=== PATIENT | male | born 1955 | race Caucasian/White ===

== ENCOUNTER 2019-02-21 11:00 | Inpatient (IN) | payer OTHER ==
[2019-02-21] MEDS ORDERED: Morphine 2 MG/ML Syringe IVPUSH PRN ×3 (11:28→12:45)
[2019-02-21] MEDS ORDERED: Ondansetron 4 MG/2 ML SDV IV PRN (11:28)
[2019-02-21] MEDS ORDERED: Albuterol/Ipratropium 3.0-0.5 MG/3 ML Neb Soln NEB PRN (11:28)
[2019-02-21] MEDS ORDERED: Albuterol 8 GM Inhaler INH PRN ×2 (11:48→14:47)
[2019-02-21 12:32] LABS: ANION GAP 16.2 mmol/L (5-15); CHLORIDE,CL 100 mmol/L (98-115); SODIUM,NA 139 mmol/L (136-145)
[2019-02-21] MEDS: Sodium Chloride 0.9% 10 ML Syringe FLUSH PRN ×2 (12:55→21:18)
[2019-02-21] MEDS ORDERED: Albuterol/Ipratropium 3.0-0.5 MG/3 ML Neb Soln INH PRN (13:59)
[2019-02-21] MEDS: Acetaminophen/HYDROcodone 325-5 MG Tab PO PRN (14:11)
[2019-02-21] MEDS ORDERED: predniSONE 20 MG Tab PO SCH (14:15)
[2019-02-21] MEDS ORDERED: LORazepam 2 MG/ML SDV IVPUSH ONE (15:40)
[2019-02-21] MEDS: HYDROmorphone 2 MG/ML SDV IVPUSH SCH ×2 (15:44→22:00)
[2019-02-21] MEDS: Calcium Citrate/Vitamin D3 315 MG-250 Unit Tab PO SCH (16:01)
[2019-02-21] MEDS: Cholecalciferol (Vitamin D3) 25 MCG Tab PO SCH (16:02)
[2019-02-21] MEDS: Nicotine 14 MG/24 Hr Patch TRDERM SCH (16:07)
[2019-02-21] MEDS: Polyethylene Glycol 3350 Powder 17 GM Packet PO SCH ×2 (17:23→20:55)
[2019-02-21] MEDS: Lisinopril 10 MG Tab PO SCH (17:23)
[2019-02-21] MEDS ORDERED: LORazepam 2 MG/ML SDV IVPUSH PRN (18:36)
[2019-02-21] MEDS ORDERED: Naloxone 2 MG/2 ML Syringe IVPUSH PRN (18:44)
[2019-02-21] MEDS: atorvaSTATin 10 MG Tab PO SCH (20:56)
[2019-02-21] MEDS: Cyclobenzaprine 10 MG Tab PO SCH (20:56)
[2019-02-21] MEDS: Enoxaparin 40 MG/0.4 ML Syringe SUBCUT SCH (20:58)
[2019-02-21] MEDS: Glycopyrrolate 15.6 MCG Cap.W.Dev Kit of 6 IH SCH (21:00)
[2019-02-21] MEDS: Indacaterol/Glycopyrrolate 1 EA Cap.W.Dev Kit of 6 IH SCH (21:00)
[2019-02-21] MEDS: HYDROmorphone 2 MG/ML SDV IVPUSH PRN (21:11)
[2019-02-22] MEDS: HYDROmorphone 2 MG/ML SDV IVPUSH PRN ×4 (02:44→22:08)
[2019-02-22] MEDS: Sodium Chloride 0.9% 10 ML Syringe FLUSH PRN ×5 (02:52→22:15)
[2019-02-22] MEDS: Levothyroxine 50 MCG Tab PO SCH (07:35)
[2019-02-22] MEDS: Acetaminophen/HYDROcodone 325-5 MG Tab PO PRN (07:40)
[2019-02-22] MEDS: Polyethylene Glycol 3350 Powder 17 GM Packet PO SCH ×2 (08:54→20:15)
[2019-02-22] MEDS: Cholecalciferol (Vitamin D3) 25 MCG Tab PO SCH (08:55)
[2019-02-22] MEDS: Calcium Citrate/Vitamin D3 315 MG-250 Unit Tab PO SCH (08:55)
[2019-02-22] MEDS: Hydrochlorothiazide 25 MG Tab PO SCH (08:55)
[2019-02-22] MEDS: Lisinopril 10 MG Tab PO SCH (08:55)
[2019-02-22] MEDS: Aspirin 81 MG Tab.EC PO SCH (08:55)
[2019-02-22] MEDS: Cyclobenzaprine 10 MG Tab PO SCH ×2 (08:56→20:15)
[2019-02-22] MEDS: Enoxaparin 40 MG/0.4 ML Syringe SUBCUT SCH ×2 (09:00→20:16)
[2019-02-22] MEDS ORDERED: Bisacodyl 10 MG Supp RECTAL ONE (09:16)
[2019-02-22] MEDS ORDERED: LORazepam 0.5 MG Tab PO ONE (09:16)
[2019-02-22] MEDS: Glycopyrrolate 15.6 MCG Cap.W.Dev Kit of 6 IH SCH ×2 (09:29→20:11)
[2019-02-22] MEDS: Indacaterol/Glycopyrrolate 1 EA Cap.W.Dev Kit of 6 IH SCH ×2 (09:33→20:12)
[2019-02-22] MEDS: Acetaminophen/HYDROcodone 325-10 MG Tab PO PRN ×2 (10:40→16:52)
--- NOTE | 2019-02-22 11:01 | PCM.PN ---
- General Info Date of Service: 02/22/19 Functional Status: Reports: Pain Controlled, Tolerating Diet, Urinating. Denies : Ambulating - Review of Systems General: Denies: Weakness HEENT: Reports: No Symptoms Pulmonary: Reports: Shortness of Breath Cardiovascular: Reports: No Symptoms Gastrointestinal: Reports: Constipation. Denies: Decreased Appetite, Diarrhea, Nausea Genitourinary: Denies: Incontinence Musculoskeletal: Reports: Back Pain Neurological: Reports: Pre-Existing Deficit, Tingling, Difficulty Walking. Denies: Confusion, Change in Speech Psychiatric: Reports: No Symptoms - Patient Data Vitals - Most Recent: Last Vital Signs Temp 97.5 F 02/22/19 06:53 Pulse 98 02/22/19 06:53 Resp 20 02/22/19 06:53 BP 114/86 02/22/19 08:55 Pulse Ox 91 L 02/22/19 06:53 Weight - Most Recent: 239 lb 14.4 oz I&O - Last 24 Hours: Intake & Output 02/21/19 02/22/19 02/22/19 22:59 06:59 14:59 Intake Total 620 100 Output Total 975 300 Balance -355 -200 Lab Results Last 24 Hours: Laboratory Results - last 24 hr 02/21/19 02/21/19 02/21/19 Range/Units 12:05 12:05 15:30 WBC 13.56 H (5.00-10.00) 10^3/uL RBC 6.86 H (4.50-6.00) 10^6/uL Hgb 14.5 (13.0-17.0) g/dL Hct 45.6 (40.0-52.0) % MCV 66.5 L (82.0-92.0) fL MCH 21.1 L (27.0-31.0) pg MCHC 31.8 L (32.0-36.0) g/dL RDW 17.5 H (11.5-14.5) % Plt Count 230 (150-400) 10^3/uL MPV 9.1 (7.4-10.4) fL Immature Gran % (Auto) 0.4 (0.0-5.0) % Neut % (Auto) 79.7 H (50.0-70.0) % Lymph % (Auto) 10.2 L (20.0-40.0) % [place] % (Auto) 7.6 (2.0-8.0) % Eos % (Auto) 1.7 (1.0-3.0) % Baso % (Auto) 0.4 (0.0-1.0) % Immature Gran # (Auto) 0.05 (0.00-0.50) 10^3/uL Neut # (Auto) 10.82 H (2.50-7.00) 10^3/uL Lymph # (Auto) 1.38 (1.00-4.00) 10^3/uL [place] # (Auto) 1.03 H (0.10-0.80) 10^3/uL Eos # (Auto) 0.23 (0.10-0.30) 10^3/uL Baso # (Auto) 0.05 (0.00-0.10) 10^3/uL Sodium 139 (136-145) mmol/L Potassium 4.3 (3.3-5.3) mmol/L Chloride 100 (98-115) mmol/L Carbon Dioxide 27.1 (21.0-32.0) mmol/L Anion Gap 16.2 H (5-15) mmol/L BUN 16 (6-25) mg/dL Creatinine 0.72 (0.51-1.17) mg/dL Est Cr Clr Drug Dosing 106.38 mL/min Estimated GFR (MDRD) > 60 mL/min Glucose 83 (75 - 99) mg/dL Calcium 8.7 (8.7-10.3) mg/dL Total Bilirubin 1.1 H (0.2-1.0) mg/dL AST 17 (15-37) U/L ALT 21 (12-78) U/L Alkaline Phosphatase 67 (46-116) IU/L Total Protein 6.9 (6.4-8.2) g/dL Albumin 3.25 (3.00-4.80) g/dL Specimen Type Urincc Urine Color Yellow (YELLOW) Urine Appearance Clear (CLEAR) Urine pH 7.0 (5.0-9.0) Ur Specific [place] 1.015 (1.005-1.030) Urine Protein Negative (NEGATIVE) mg/dL Urine Glucose (UA) Negative (NEGATIVE) mg/dL Urine Ketones 40 H (NEGATIVE) mg/dL Urine Occult Blood Negative (NEGATIVE) Urine Nitrite Negative (NEGATIVE) Urine Bilirubin Negative (NEGATIVE) Urine Urobilinogen 1.0 (0.2-1.0) E.U./dL Ur Leukocyte Esterase Negative (NEGATIVE) Urine RBC 0-5 (0-5) /HPF Urine WBC 0-5 (0-5) /HPF Ur Epithelial Cells Few /LPF Urine Bacteria Few (NONE TO FEW) /HPF Med Orders - Current: Current Medications Acetaminophen (Tylenol) 650 mg PO TID PRN PRN Reason: Pain Hydrocodone Bitart/Acetaminophen ([place] 325-10 Mg) 1 tab PO Q6H PRN PRN Reason: Pain (moderate 4-6) Albuterol (Ventolin Hfa) 0 gm INH Q6H PRN PRN Reason: Shortness of Breath Albuterol/Ipratropium (Duoneb 3.0-0.5 Mg/3 Ml) 3 ml INH Q6H PRN PRN Reason: Shortness of Breath Aspirin (Halfprin) 81 mg PO DAILY [facility] Last Admin: 02/22/19 08:55 Dose: 81 mg Atorvastatin Calcium (Lipitor) 20 mg PO BEDTIME [facility] Last Admin: 02/21/19 20:56 Dose: 20 mg Calcium Citrate (Calcium Citrate + D) 4 tab PO DAILY [facility] Last Admin: 02/22/19 08:55 Dose: 4 tab Cholecalciferol (Vitamin D3) 25 mcg PO DAILY [facility] Last Admin: 02/22/19 08:55 Dose: 25 mcg Cyclobenzaprine HCl (Flexeril) 10 mg PO BID [facility] Last Admin: 02/22/19 08:56 Dose: 10 mg Enoxaparin Sodium (Lovenox) 40 mg SUBCUT Q12H [facility] Last Admin: 02/22/19 09:00 Dose: 40 mg Glycopyrrolate (Seebri Neohaler) 15.6 mcg IH BIDRT [facility] Last Admin: 02/22/19 09:29 Dose: 1 inhalation Glycopyrrolate/Indacaterol (Utibron Neohaler 27.5-15.6 Mcg) 1 each IH BIDRT [facility] Last Admin: 02/22/19 09:33 Dose: 1 inhalation Hydrochlorothiazide (Hydrochlorothiazide) 12.5 mg PO DAILY [facility] Last Admin: 02/22/19 08:55 Dose: 12.5 mg Hydromorphone HCl (Dilaudid) 2 mg IVPUSH Q3H PRN PRN Reason: Pain Last Admin: 02/22/19 08:09 Dose: 2 mg Levothyroxine Sodium (Synthroid) 50 mcg PO ACBREAKFAST [facility] Last Admin: 02/22/19 07:35 Dose: 50 mcg Lisinopril (Prinivil) 10 mg PO DAILY [facility] Last Admin: 02/22/19 08:55 Dose: 10 mg Lorazepam (Ativan) 0.25 mg IVPUSH ONETIME PRN PRN Reason: Anxiety Miscellaneous Information (Remove Patch) 1 ea TRDERM DAILY@1300 [facility] Naloxone HCl (Narcan) 1 mg IVPUSH ASDIRECTED PRN PRN Reason: Oversedation Nicotine (Habitrol) 14 mg TRDERM DAILY@1300 [facility] Last Admin: 02/21/19 16:07 Dose: 14 mg Ondansetron HCl (Zofran) 4 mg IV Q6H PRN PRN Reason: Nausea/Vomiting Last Admin: 02/21/19 15:41 Dose: 4 mg Polyethylene Glycol (Miralax) 17 gm PO BID [facility] Last Admin: 02/22/19 08:54 Dose: 17 gm Sodium Chloride (Saline Flush) 10 ml FLUSH Q8HR PRN PRN Reason: keep vein open Last Admin: 02/22/19 08:10 Dose: 10 ml Discontinued Medications Hydrocodone Bitart/Acetaminophen ([place] 325-5 Mg) 1 tab PO QID PRN PRN Reason: Pain (moderate 4-6) Last Admin: 02/22/19 07:40 Dose: 1 tab Albuterol (Ventolin Hfa) 1 - 2 gm INH Q6H PRN PRN Reason: Shortness of Breath Bisacodyl (Dulcolax) 10 mg RECTAL ONETIME ONE Stop: 02/22/19 09:17 Last Admin: 02/22/19 09:51 Dose: 10 mg Hydromorphone HCl (Dilaudid) 2 mg IVPUSH Q3H [facility] Last Admin: 02/21/19 22:00 Dose: Not Given Lorazepam (Ativan) 0.5 mg IVPUSH ONETIME ONE Stop: 02/21/19 15:41 Last Admin: 02/21/19 15:47 Dose: 0.5 mg Lorazepam (Ativan) 0.25 mg PO ONETIME ONE Stop: 02/22/19 09:17 Last Admin: 02/22/19 09:49 Dose: 0.25 mg Morphine Sulfate (Morphine) 2 mg IVPUSH Q2H PRN PRN Reason: Pain (moderate 4-6) Morphine Sulfate (Morphine) 4 mg IVPUSH Q4H PRN PRN Reason: Pain (severe 7-10) Morphine Sulfate (Morphine) 4 mg IVPUSH Q4H PRN PRN Reason: Pain (severe 7-10) Morphine Sulfate (Morphine) 4 mg IVPUSH Q4H PRN PRN Reason: Pain (severe 7-10) Last Admin: 02/21/19 12:51 Dose: 4 mg Prednisone (Prednisone) 20 mg PO BID [facility] Last Admin: 02/21/19 20:42 Dose: Not Given - Exam Quality Assessment: Supplemental Oxygen, DVT Prophylaxis General: Alert, Oriented, Cooperative, No Acute Distress Neck: No JVD Lungs: Rhonchi (right ) Cardiovascular: Regular Rate, Regular Rhythm GI/Abdominal Exam: Other (Body habitus, large) Back Exam: Other (Lumbar tenderness, ) Extremities: No Pedal Edema Neurological: Normal Tone (See assessment), Other Sepsis Event Note - Evaluation Sepsis Screening Result: No Definite Risk - Focused Exam Vital Signs: Vital Signs Temp Pulse Resp BP BP BP Pulse Ox 02/22/19 08:55 114/86 02/22/19 06:53 97.5 F 98 20 126/80 91 L 02/22/19 02:23 97.7 F 78 20 123/66 92 L 02/21/19 22:58 97.5 F 76 20 114/73 93 L Date Exam was Performed: 02/23/19 Time Exam was Performed: 08:50 - Problem List Review Problem List Initiated/Reviewed/Updated: Yes - My Orders Last 24 Hours: My Active Orders 02/21/19 13:59 Albuterol/Ipratropium [DuoNeb 3.0-0.5 MG/3 ML] 3 ml INH Q6H PRN 02/21/19 14:00 lisinopriL [Prinivil] 10 mg PO DAILY 02/21/19 20:00 Glycopyrrolate [Seebri Neohaler] 15.6 mcg IH BIDRT Indacaterol/Glycopyrrolate [Utibron Neohaler 27.5-15.6 MCG] 1 each IH BIDRT 02/21/19 21:00 atorvaSTATin [Lipitor] 20 mg PO BEDTIME 02/22/19 07:30 Levothyroxine [Synthroid] 50 mcg PO ACBREAKFAST 02/22/19 09:00 Aspirin [Halfprin] 81 mg PO DAILY - Plan Plan:: History summary 63-year-old morbid obese gentleman was admitted by Dr. BOUDREAUX for pain management due to an acute exacerbation secondary to recent L2 compression fracture. Prehospital history Patient was recently discharged from [facility] due to acute L2 compression fraction and pain control. He presented to the ED secondary to low back pain which was radiating down his left leg to the point of his left knee. He notes that he almost fell however he had caught himself which he admits to likely contributing to his current back pain and therefore sought chiropractic treatment however this seemed to make it worse. He does do note that he did sustain a fall around the beginning of the year in his bathroom however denies back pain thereafter. MRI demonstrated known compression fracture of L2 vertebral body with slight combination with almost 50% decreased in height with the posterior cortex being relatively preserved. There is a small central hematoma extending from L2 to L3. Well-preserved central canal up to 8 mm in diameter. Also chronic appearing disc disease at L5-S1 with left symmetric disc osteophyte ridge approaching into the left neural foramina abutting the exiting left L5 nerve root. Also noted was a 4 cm distal fusiform abdominal aortic aneurysm Pertinent physical exam component Lumbar Spine: Pain over lumbar spine bilaterally Palpation of the sacroiliac joint does not elicit pain bilaterally. Palpation of the piriformis muscle does not elicit pain bilaterally Neurological: LLL 4/5 bilaterally, sensation is intact to light touch Deep tendon reflexes of the right patellar is 1+ Deep tendon reflexes of the left patellar 1+ No appreciable SLR bilaterally Marty's test is negative bilaterally. Primary Hospital problems --Compression fracture, L2, acute, with lumbar radiculopathy --Constipation, add Movantic --Leukocytosis, likely PNA sequela --DVT prophylaxis, LMWH Chronic problems --COPD, requiring 2 L oxygen at this time, recent pneumonia and had been on prednisone, patient was taking LABA PRN, educated proper medication use. --Tobacco dependency, nicotine replacement therapy --Hyperlipidemia, low-dose statin, 2018 lipids reviewed, suboptimal, PCP to manage as outpatient --Hypertension, Zestoretic, --Hypothyroidism --Osteoarthritis --Obesity, morbid, comorbid Disposition/overall plan --Continue with pain control measures, add lidoderm patch, limited Toradol, hopefully convert today to PO --Bowel regimen, add Movantik --Dr Boudreaux is following patient closely
[2019-02-22] MEDS ORDERED: Lidocaine 5% 700 MG Patch TOP SCH (12:15)
[2019-02-22] MEDS: Pantoprazole 40 MG Tab.CR PO SCH (12:20)
[2019-02-22] MEDS: Naloxegol Oxalate 25 MG Tab PO SCH (12:20)
[2019-02-22] MEDS: Nicotine 14 MG/24 Hr Patch TRDERM SCH (12:30)
[2019-02-22] MEDS: Ketorolac 30 MG/ML SDV IVPUSH PRN (12:31)
[2019-02-22] MEDS: atorvaSTATin 10 MG Tab PO SCH (20:15)
[2019-02-23] MEDS: Acetaminophen/HYDROcodone 325-10 MG Tab PO PRN ×4 (00:25→19:04)
[2019-02-23] MEDS: Ketorolac 30 MG/ML SDV IVPUSH PRN ×2 (05:40→14:24)
[2019-02-23] MEDS: Sodium Chloride 0.9% 10 ML Syringe FLUSH PRN ×3 (05:46→17:32)
[2019-02-23] MEDS: Pantoprazole 40 MG Tab.CR PO SCH (07:57)
[2019-02-23] MEDS: Levothyroxine 50 MCG Tab PO SCH (07:57)
[2019-02-23] MEDS: Calcium Citrate/Vitamin D3 315 MG-250 Unit Tab PO SCH (08:47)
[2019-02-23] MEDS: Cyclobenzaprine 10 MG Tab PO SCH ×2 (08:48→21:09)
[2019-02-23] MEDS: Lisinopril 10 MG Tab PO SCH (08:48)
[2019-02-23] MEDS: Naloxegol Oxalate 25 MG Tab PO SCH (08:48)
[2019-02-23] MEDS: Cholecalciferol (Vitamin D3) 25 MCG Tab PO SCH (08:48)
[2019-02-23] MEDS: Hydrochlorothiazide 25 MG Tab PO SCH (08:49)
[2019-02-23] MEDS: Aspirin 81 MG Tab.EC PO SCH (08:49)
[2019-02-23] MEDS: Polyethylene Glycol 3350 Powder 17 GM Packet PO SCH ×2 (08:50→21:09)
[2019-02-23] MEDS: Enoxaparin 40 MG/0.4 ML Syringe SUBCUT SCH ×2 (08:54→21:10)
[2019-02-23] MEDS: Glycopyrrolate 15.6 MCG Cap.W.Dev Kit of 6 IH SCH ×2 (08:54→21:05)
[2019-02-23] MEDS: Indacaterol/Glycopyrrolate 1 EA Cap.W.Dev Kit of 6 IH SCH ×2 (09:32→21:06)
[2019-02-23] MEDS: Lidocaine 5% 700 MG Patch TOP SCH (09:38)
[2019-02-23] MEDS: Acetaminophen 325 MG Tab PO PRN ×2 (10:52→17:26)
[2019-02-23] MEDS: Nicotine 14 MG/24 Hr Patch TRDERM SCH (13:10)
[2019-02-23] MEDS: HYDROmorphone 2 MG/ML SDV IVPUSH PRN (17:28)
[2019-02-23] MEDS: atorvaSTATin 10 MG Tab PO SCH (21:09)
[2019-02-24] MEDS: Acetaminophen/HYDROcodone 325-10 MG Tab PO PRN ×3 (01:05→13:08)
[2019-02-24] MEDS: Pantoprazole 40 MG Tab.CR PO SCH (07:33)
[2019-02-24] MEDS: Levothyroxine 50 MCG Tab PO SCH (07:33)
[2019-02-24] MEDS: Polyethylene Glycol 3350 Powder 17 GM Packet PO SCH (08:29)
[2019-02-24] MEDS: Calcium Citrate/Vitamin D3 315 MG-250 Unit Tab PO SCH (08:29)
[2019-02-24] MEDS: Cholecalciferol (Vitamin D3) 25 MCG Tab PO SCH (08:30)
[2019-02-24] MEDS: Lisinopril 10 MG Tab PO SCH (08:30)
[2019-02-24] MEDS: Naloxegol Oxalate 25 MG Tab PO SCH (08:30)
[2019-02-24] MEDS: Cyclobenzaprine 10 MG Tab PO SCH (08:30)
[2019-02-24] MEDS: Aspirin 81 MG Tab.EC PO SCH (08:30)
[2019-02-24] MEDS: Hydrochlorothiazide 25 MG Tab PO SCH (08:30)
[2019-02-24] MEDS: Enoxaparin 40 MG/0.4 ML Syringe SUBCUT SCH (08:32)
[2019-02-24] MEDS: Acetaminophen 325 MG Tab PO PRN (09:41)
[2019-02-24] MEDS: Lidocaine 5% 700 MG Patch TOP SCH (09:42)
[2019-02-24] MEDS: Glycopyrrolate 15.6 MCG Cap.W.Dev Kit of 6 IH SCH (09:43)
[2019-02-24] MEDS: Indacaterol/Glycopyrrolate 1 EA Cap.W.Dev Kit of 6 IH SCH (10:13)
[2019-02-24] MEDS: Nicotine 14 MG/24 Hr Patch TRDERM SCH (13:10)
--- NOTE | 2019-02-24 13:12 | PCM.DCSUM1 ---
Discharge Summary - Hospital Course Free Text/Narrative:: Date of admission: 02/21/19 Date of discharge: 02/25/19 Admission diagnoses: # Compression fracture, L2, acute, with lumbar radiculopathy # Uncontrolled low back pain # Constipation, likely opiate induced # COPD # Hypertension # Abdominal aortic aneurysm: Noted on 02/18/19 MRI = 4cm # Hypothyroidism # Hyperlipidemia # Obesity # Osteoarthritis # Tobacco dependence Discharge diagnoses: # Compression fracture, L2, acute, with lumbar radiculopathy # Uncontrolled low back pain, improved # Constipation, likely opiate induced # COPD # Abdominal aortic aneurysm: Noted on 02/18/19 MRI = 4cm # Hypertension # Hypothyroidism # Hyperlipidemia # Obesity # Osteoarthritis # Tobacco dependence Consultations: Dr. Ortiz, interventional radiology, [facility]; consulted via [employer] on day of admission by Dr. Hung Herrera Procedures: None Hospital course: 63-year-old male who was found to have an L2 compression fracture on MRI obtained 02/18/19 at [facility] [place] after presenting to the ED with low back pain radiating down his left leg. He was admitted there for 1 night for pain control and discharged on an oral regimen, but later followed-up with PCP Dr. Hung Herrera at on 02/21/19 with persistent uncontrolled pain and constipation thought to be opiate induced. He was admitted for further management. He initially required IV hydromorphone for pain control in addition to po [place] and acetaminophen. Pain became improved on nearly exclusive oral regimen along with topical lidocaine patch and po cyclobenzaprine with ability to wean IV narcotic. Naloxogel was added with improvement in opiate induced constipation. He was continued on other medications for chronic conditions. He felt ready to discharge home on current regimen with close outpatient follow-up. Discharge and follow-up recommendations: - Discharge to home with - New medications at discharge: - [place] 10/325mg #3 dispensed at discharge (no pharmacy open until tomorrow) and #20 dispensed for pick-up at pharmacy - Cyclobenzaprine #2 dispensed at discharge (no pharmacy open until tomorrow ) and #30 dispensed for pick-up at pharmacy - Lidocaine patch #5 - Movantik 1 tab po daily #30 - Instructed on appropriate use of no more than 4000mg of acetaminophen total daily and avoidance of NSAIDs per prior recommendations due to current fracture - Follow-up with PCP Dr. Hung Herrera within the next 5 days; patient is instructed to call the [facility] on 02/25/19 to schedule appt - Needs ongoing monitoring of AAA noted on prior MRI Diagnosis: Stroke: No - Discharge Data Discharge Date: 02/24/19 Discharge Disposition: Home, Self-Care 01 Condition: Good - Referral to Home Health Primary Care Physician: Herman Herrera MD - Patient Summary/Data Consults: Consultations 02/24/19 12:03 Consult to Physical Therapy [PT Evaluation and Treatment] [CONS] Routine - Patient Instructions Diet: Usual Diet as Tolerated Activity: As Tolerated Driving: Do Not Drive Notify Provider of: Fever, Increased Pain, Nausea and/or Vomiting - Discharge Plan *PRESCRIPTION DRUG MONITORING PROGRAM REVIEWED*: Yes *COPY OF PRESCRIPTION DRUG MONITORING REPORT IN PATIENT ISH: Yes Prescriptions/Med Rec: Cyclobenzaprine [Flexeril] 10 mg PO BID PRN #20 tablet PRN Reason: Muscle Spasm Hydrocodone/Acetaminophen [Hydrocodon-Acetaminophn 10-325] 1 tab PO Q6H PRN #20 tablet PRN Reason: severe pain Lidocaine 5% [Lidoderm 5%] 700 mg TOP Q24H #5 patch Naloxegol Oxalate [Movantik] 25 mg PO DAILY #30 tablet Home Medications: Home Meds Albuterol/Ipratropium [Combivent Respimat] 1 puff IH Q4H PRN 02/21/19 [History] Aspirin [Adult Low Dose Aspirin EC] 81 mg PO DAILY 02/21/19 [History] Levothyroxine [Synthroid] 50 mcg PO ACBREAKFAST 02/21/19 [History] Lisinopril/Hydrochlorothiazide [Zestoretic 10-12.5 mg Tablet] 1 each PO DAILY [History] Tiotropium [place] [Spiriva Respimat] 2 puff IH DAILY PRN 02/21/19 [History] Umeclidinium Brm/Vilanterol Tr [Anoro Ellipta 62.5-25 MCG] 1 puff IH DAILY 02/21 [History] atorvaSTATin [Lipitor] 20 mg PO BEDTIME 02/21/19 [History] Acetaminophen [Tylenol] 650 mg PO TID PRN tablet 02/24/19 [Rx] Calcium Citrate/Vitamin D3 [Yellow Medicine Calcium D (200 MG Calcium)] 4 tab PO DAILY tablet 02/24/19 [Rx] Cholecalciferol (Vitamin D3) [Vitamin D3] 25 mcg PO DAILY tablet 02/24/19 [Rx] Cyclobenzaprine [Flexeril] 10 mg PO BID PRN #20 tablet 02/24/19 [Rx] Hydrocodone/Acetaminophen [Hydrocodon-Acetaminophn 10-325] 1 tab PO Q6H PRN #20 tablet 02/24/19 [Rx] Lidocaine 5% [Lidoderm 5%] 700 mg TOP Q24H #5 patch 02/24/19 [Rx] Naloxegol Oxalate [Movantik] 25 mg PO DAILY #30 tablet 02/24/19 [Rx] Polyethylene Glycol 3350 [MiraLAX] 17 gm PO DAILY PRN packet 02/24/19 [Rx] Referrals: Herman Herrera MD [Primary Care Provider] - (call the clinic in the [facility] on 02/25/19 to schedule appointment for this week) - Discharge Summary/Plan Comment DC Time >30 min.: Yes - General Info Date of Service: 02/24/19 Subjective Update: Patient overall feels improved on current medication regimen. Tolerating diet well. Still difficulty getting around, but improved. Strongly desires discharge to home today. Denies wishes for outpatient assistance or therapy at this time. - Patient Data Vitals - Most Recent: Last Vital Signs Temp 36.3 C 02/24/19 07:00 Pulse 86 02/24/19 07:00 Resp 16 02/24/19 07:00 BP 161/96 H 02/24/19 08:30 Pulse Ox 94 L 02/24/19 12:00 Weight - Most Recent: 108.817 kg I&O - Last 24 hours: Intake & Output 02/23/19 02/24/19 02/24/19 22:59 06:59 14:59 Intake Total 150 400 Output Total 500 600 Balance -350 -200 Med Orders - Current: Current Medications Acetaminophen (Tylenol) 650 mg PO TID PRN PRN Reason: Pain Last Admin: 02/24/19 09:41 Dose: 650 mg Hydrocodone Bitart/Acetaminophen ([place] 325-10 Mg) 1 tab PO Q6H PRN PRN Reason: Pain (moderate 4-6) Last Admin: 02/24/19 13:08 Dose: 1 tab Albuterol/Ipratropium (Duoneb 3.0-0.5 Mg/3 Ml) 3 ml INH Q6H PRN PRN Reason: Shortness of Breath Aspirin (Halfprin) 81 mg PO DAILY [facility] Last Admin: 02/24/19 08:30 Dose: 81 mg Atorvastatin Calcium (Lipitor) 20 mg PO BEDTIME [facility] Last Admin: 02/23/19 21:09 Dose: 20 mg Calcium Citrate (Calcium Citrate + D) 4 tab PO DAILY [facility] Last Admin: 02/24/19 08:29 Dose: 4 tab Cholecalciferol (Vitamin D3) 25 mcg PO DAILY [facility] Last Admin: 02/24/19 08:30 Dose: 25 mcg Cyclobenzaprine HCl (Flexeril) 10 mg PO BID [facility] Last Admin: 02/24/19 08:30 Dose: 10 mg Enoxaparin Sodium (Lovenox) 40 mg SUBCUT DAILY [facility] Glycopyrrolate (Seebri Neohaler) 15.6 mcg IH BIDRT [facility] Last Admin: 02/24/19 09:43 Dose: 1 inhalation Glycopyrrolate/Indacaterol (Utibron Neohaler 27.5-15.6 Mcg) 1 each IH BIDRT [facility] Last Admin: 02/24/19 10:13 Dose: 1 inhalation Hydrochlorothiazide (Hydrochlorothiazide) 12.5 mg PO DAILY [facility] Last Admin: 02/24/19 08:30 Dose: 12.5 mg Ketorolac Tromethamine (Toradol) 30 mg IVPUSH Q6H PRN PRN Reason: Pain Stop: 02/27/19 12:04 Last Admin: 02/23/19 14:24 Dose: 30 mg Levothyroxine Sodium (Synthroid) 50 mcg PO ACBREAKFAST [facility] Last Admin: 02/24/19 07:33 Dose: 50 mcg Lidocaine (Lidoderm 5%) 700 mg TOP Q24H [facility] Last Admin: 02/24/19 09:42 Dose: 700 mg Lisinopril (Prinivil) 10 mg PO DAILY [facility] Last Admin: 02/24/19 08:30 Dose: 10 mg Lorazepam (Ativan) 0.25 mg IVPUSH ONETIME PRN PRN Reason: Anxiety Miscellaneous Information (Remove Patch) 1 ea VIRGILIO DAILY@1300 [facility] Last Admin: 02/24/19 13:10 Dose: 1 ea Miscellaneous Information (Remove Patch) 1 ea TRDERM DAILY@2200 [facility] Last Admin: 02/23/19 22:30 Dose: 1 ea Naloxegol (Movantik) 25 mg PO DAILY [facility] Last Admin: 02/24/19 08:30 Dose: 25 mg Naloxone HCl (Narcan) 1 mg IVPUSH ASDIRECTED PRN PRN Reason: Oversedation Nicotine (Habitrol) 14 mg TRDERM DAILY@1300 [facility] Last Admin: 02/24/19 13:10 Dose: Not Given Ondansetron HCl (Zofran) 4 mg IV Q6H PRN PRN Reason: Nausea/Vomiting Last Admin: 02/21/19 15:41 Dose: 4 mg Pantoprazole Sodium (Protonix) 40 mg PO ACBREAKFAST [facility] Last Admin: 02/24/19 07:33 Dose: 40 mg Polyethylene Glycol (Miralax) 17 gm PO BID [facility] Last Admin: 02/24/19 08:29 Dose: 17 gm Sodium Chloride (Saline Flush) 10 ml FLUSH Q8HR PRN PRN Reason: keep vein open Last Admin: 02/23/19 17:32 Dose: 10 ml Discontinued Medications Hydrocodone Bitart/Acetaminophen ([place] 325-5 Mg) 1 tab PO QID PRN PRN Reason: Pain (moderate 4-6) Last Admin: 02/22/19 07:40 Dose: 1 tab Albuterol (Ventolin Hfa) 1 - 2 gm INH Q6H PRN PRN Reason: Shortness of Breath Albuterol (Ventolin Hfa) 0 gm INH Q6H PRN PRN Reason: Shortness of Breath Bisacodyl (Dulcolax) 10 mg RECTAL ONETIME ONE Stop: 02/22/19 09:17 Last Admin: 02/22/19 09:51 Dose: 10 mg Enoxaparin Sodium (Lovenox) 40 mg SUBCUT Q12H [facility] Last Admin: 02/24/19 08:32 Dose: 40 mg Hydromorphone HCl (Dilaudid) 2 mg IVPUSH Q3H [facility] Last Admin: 02/21/19 22:00 Dose: Not Given Hydromorphone HCl (Dilaudid) 2 mg IVPUSH Q3H PRN PRN Reason: Pain Last Admin: 02/23/19 17:28 Dose: 2 mg Lidocaine (Lidoderm 5%) 700 mg TOP Q24H [facility] Last Admin: 02/22/19 12:21 Dose: 700 mg Lorazepam (Ativan) 0.5 mg IVPUSH ONETIME ONE Stop: 02/21/19 15:41 Last Admin: 02/21/19 15:47 Dose: 0.5 mg Lorazepam (Ativan) 0.25 mg PO ONETIME ONE Stop: 02/22/19 09:17 Last Admin: 02/22/19 09:49 Dose: 0.25 mg Morphine Sulfate (Morphine) 2 mg IVPUSH Q2H PRN PRN Reason: Pain (moderate 4-6) Morphine Sulfate (Morphine) 4 mg IVPUSH Q4H PRN PRN Reason: Pain (severe 7-10) Morphine Sulfate (Morphine) 4 mg IVPUSH Q4H PRN PRN Reason: Pain (severe 7-10) Morphine Sulfate (Morphine) 4 mg IVPUSH Q4H PRN PRN Reason: Pain (severe 7-10) Last Admin: 02/21/19 12:51 Dose: 4 mg Prednisone (Prednisone) 20 mg PO BID [facility] Last Admin: 02/21/19 20:42 Dose: Not Given - Exam Physical Findings Comments:: GENERAL: Well-appearing adult in no acute distress sitting on hospital bedside eating lunch. HEENT: Normocephalic, atraumatic. Conjunctiva clear. Nares patent without discharge. Mucous membranes moist, posterior pharynx unremarkable. NECK: Supple, no masses. CV: Regular rate and rhythm, no murmurs, rubs, or gallops. 2+ radial pulses. PULMONARY: Normal effort, clear to auscultation bilaterally, no wheezes, rales, or rhonchi. ABDOMEN: Positive bowel sounds, protuberant, soft, nontender, nondistended. EXTREMITIES: No edema, cyanosis, or clubbing. MUSCULOSKELETAL: Moves all extremities well. NEUROLOGICAL: No obvious deficits. Sensation to light touch intact in lower extremities. 5/5 strength in lower extremities. No clonus. DERMATOLOGIC: No rashes or suspicious lesions in exposed areas. PSYCHIATRIC: Alert, interactive, appropriate affect.
[2019-02-24] MEDS ORDERED: Acetaminophen/HYDROcodone 325-10 MG Tab PO ONE (13:17)
[2019-02-24] MEDS ORDERED: Cyclobenzaprine 10 MG Tab PO ONE (13:18)
--- NOTE | 2019-02-25 08:36 | PN ---
02/23/2019 PATIENT NAME: DA NELSON SUBJECTIVE: This is a 63-year-old gentleman who was admitted to the hospital because of subacute fracture of the L2. This happened a few days ago. He was seen in the [facility] and treated symptomatically for pain, but his pain exacerbated to the point where he could not walk and he was brought to the [facility] as we have been his PCP for many years. The MRI revealed a compression fracture of L2 with 50% decrease in height. The decrease in height was more anteriorly with preservation of the posterior cortex, although he does have a slight left L5 lumbar radiculopathy due to previous lateral recess stenosis in this area due to diskogenic disease. Today, the patient is seen for followup. OBJECTIVE: GENERAL: He is alert, well oriented to space, time, and person. Pain level is 0 to 3. VITAL SIGNS: Blood pressure is 147/85, oxygen saturation is 91%, weight is 239 pounds. HEAD: Negative. EYES: Normal. ENT: Negative. NECK: Supple. HEART AND LUNGS: Stable. ABDOMEN: Soft, slightly distended. He did have a small BM. Bowel sounds are present. EXTREMITIES: Normal. Palpation of the lumbar spine shows some degree of tenderness. Lower extremities normal. INTAKE/OUTPUT: Satisfactory. FINAL DIAGNOSES: 1. Acute/subacute compression fracture of L2 with moderate to severe pain, improving slowly. Plan is to continue pain medication with Dilaudid IV and [place] p.o., Toradol IV, and will continue on Movantik to prevent constipation and side effects of narcotics. 2. Slight constipation. This appears to be improving. 3. Chronic obstructive pulmonary obstruction. The patient is being treated with DuoNeb inhalations on a p.r.n. basis, albuterol on a p.r.n. basis. Also inspirometer left in his room for frequent usage. 4. Hypothyroidism, stable. 5. Mild anxiety, stable. The patient also started on calcium and vitamin D. In addition, the patient has been started on Ellipta. He will try to increase his ambulation and see how he does. /[id number]/MODL MTDD
[2019-02-25] MEDS ORDERED: Enoxaparin 40 MG/0.4 ML Syringe SUBCUT SCH (09:00)
== END 2019-02-24 13:45 | disposition home or self-care (01) | DRG 544 ==
LOC: KA.MS 11:00
PROVIDERS: ADMIT Family Medicine; ATTEND Family Medicine
DX: M48.56XA Collapsed vertebra, not elsewhere classified, lumbar region, initial encounter for fracture (principal); J44.9 Chronic obstructive pulmonary disease, unspecified; I10 Essential (primary) hypertension; E03.9 Hypothyroidism, unspecified; E78.5 Hyperlipidemia, unspecified; M19.90 Unspecified osteoarthritis, unspecified site; F17.210 Nicotine dependence, cigarettes, uncomplicated; E66.01 Morbid (severe) obesity due to excess calories; M85.88 Other specified disorders of bone density and structure, other site; D72.829 Elevated white blood cell count, unspecified; F41.9 Anxiety disorder, unspecified; K59.03 Drug induced constipation; T40.2X5A Adverse effect of other opioids, initial encounter; M54.16 Radiculopathy, lumbar region; Z79.51 Long term (current) use of inhaled steroids; Z99.81 Dependence on supplemental oxygen; Z79.82 Long term (current) use of aspirin; Z79.899 Other long term (current) drug therapy
CPT/HCPCS: 36415; 80053; 81001; 85025; 94640; A9270-GY; J1170; J1650; J1885; J2060; J2270; J2405